=== PATIENT | male | born 1970 | race Caucasian/White ===

== ENCOUNTER 2016-12-05 11:11 | Emergency (ER) | payer OTHER ==
--- NOTE | 2016-12-05 12:00 | UCPHY ---
H & P Time Seen by Provider: 12/05/16 11:27 Patient Type: New HPI/ROS: CHIEF COMPLAINT: Calf pain History by patient HISTORY OF PRESENT ILLNESS: 46-year-old man with a remote history of an unprovoked DVT any positive family history of blood clotting in several relatives presents complaining of pain in his left calf which has been constant and increasing over 2 weeks. Pain began after skiing 1 day but has not gone away and it feels similar to his prior blood clot. He denies any leg swelling. He has been able to walk on it. He has not taken anything for the pain but he is concerned that he might have a blood clot there because of his prior history. He is not currently on any blood thinning medication. He thinks he was on Coumadin in the past. Patient denies any chest pain or trouble breathing. REVIEW OF SYSTEMS: As in HPI, and all other systems reviewed and are negative Smoking Status: Never smoked Physical Exam: General Appearance: Alert and no distress. Eyes: Pupils equal and round no injection. Musculoskeletal: Neck is supple and nontender. Extremities: Left lower leg with mild mid calf tenderness but no swelling. No posterior knee tenderness. DP pulses 2+ and equal bilaterally. Distal sensation is intact. Positive Homans sign Skin: No rashes or lesions. Constitutional: Initial Vital Signs Temperature (C) 36.7 C 12/05/16 11:23 Heart Rate 74 12/05/16 11:23 Respiratory Rate 18 12/05/16 11:23 Blood Pressure 141/76 H 12/05/16 11:23 O2 Sat (%) 94 12/05/16 11:23 O2 Delivery Mode Room Air Allergies/Adverse Reactions: No Known Allergies Allergy (Unverified 06/10/13 16:15) Home Medications: Medication Instructions Recorded Sertraline HCl 06/10/13 Medical Decision Making ED Course/Re-evaluation: Patient with prior history of DVT in family history of DVT suggesting underlying clotting disorder presents with pain in his calf similar to prior episodes. A D-dimer is positive. Patient is sent to [facility] to have ultrasound to evaluate for DVT. I discussed the case with Dr. Freedman at [facility]. - Data Points Laboratory Results: 12/05/16 11:35 D-Dimer 1.52 ug/mLFEU H ug/mLFEU (0.00-0.50) Departure - Departure Disposition: [facility] ER Clinical Impression: Leg pain, left Condition: Good Additional Instructions: You were seen by Dr. Cara Roblero today. Please go straight to [facility] ER to have an ultrasound. They should be expecting you. Referrals: NONE *PRIMARY CARE P,. [Primary Care Provider] - As per Instructions - PQRS PQRS Measurement: NA
[2016-12-05 12:24] VITALS: RESP 16
--- NOTE | 2016-12-05 15:28 | EDPHY ---
H & P Time Seen by Provider: 12/05/16 11:27 HPI/ROS: CHIEF COMPLAINT: Possible thrombus in the left calf HISTORY OF PRESENT ILLNESS: 46-year-old male evaluated the [facility] with a prior history of DVTs now presents with left calf swelling. He was referred to [facility] to undergo ultrasound evaluation. Patient was noted to have an elevated D-dimer at the [facility]. There was no ultrasound available at the [facility] today. Patient was otherwise well. No fever, chills, chest pain, shortness of breath, palpitations, vomiting, diarrhea, urinary complaints, headache, lightheadedness. REVIEW OF SYSTEMS: Aside from elements discussed in the HPI, a comprehensive 10-point review of systems was reviewed and is negative. PAST MEDICAL HISTORY: DVT, unprovoked, 13 years ago. SOCIAL HISTORY: Nonsmoker. VITAL SIGNS: see nurse's notes. GENERAL: Well-developed, well-nourished, in no acute distress. HEENT: Benign exam. Neck: supple, FROM. LUNGS: Clear to auscultation bilaterally, no wheezes, rhonchi or rales. CARDIAC: Regular rate and rhythm, no rubs, murmurs or gallops. ABDOMEN: Benign. BACK: No CVA tenderness. No vertebral tenderness. EXTREMITIES: Left lower extremity: No swelling or erythema is appreciated on visual inspection. The calf is somewhat tender to palpation. No popliteal tenderness. Distal pulses are 2+ dorsalis pedis and posterior tibial. Positive Homans sign. NEURO: Alert and oriented, grossly nonfocal. SKIN: Warm and dry, no rash. Smoking Status: Never smoked Constitutional: Initial Vital Signs Temperature (C) 36.7 C 12/05/16 11:23 Heart Rate 74 12/05/16 11:23 Respiratory Rate 18 12/05/16 11:23 Blood Pressure 141/76 H 12/05/16 11:23 O2 Sat (%) 94 12/05/16 11:23 O2 Delivery Mode Room Air Allergies/Adverse Reactions: No Known Allergies Allergy (Verified 12/05/16 12:41) Home Medications: Medication Instructions Recorded Sertraline HCl 06/10/13 Rivaroxaban [Xarelto 15mg (*)] 15 mg PO DAILY #20 tab 12/05/16 MDM/Departure - MDM Imaging Results: Imaging Impressions Extremity Venous Study 12/05/16 13:12 Impression: Deep vein thrombosis in the left calf with no extension into the popliteal vein or more cephalad deep veins. Results called and discussed with Beth Freedman MD on 12/05/2016 at 14:50 ED Course/Re-evaluation: 46-year-old male with history of a past DVT now presenting with clot in his left calf. Patient will be placed on Xarelto 15 mg by mouth 2 times a day. He has been seen at the prior [facility]. Attempt was made to contact on-call physician for [facility] on multiple occasions. The time of this dictation, 5:00 p.m., they have not yet returned my call. Patient understands that he needs to begin taking the Xarelto and follow up with the primary care physician on Wednesday or Wednesday of next week for further evaluation as well as for further management of his xarelto. Differential Diagnosis: Differential diagnosis for the patient's primary complaint of leg swelling was considered including but not limited to cellulitis, hypoalbuminemia, congestive heart failure, cor pulmonale, chronic venous stasis and DVT. - Depart Disposition: [facility] ER Clinical Impression: Leg pain, left Calf DVT (deep venous thrombosis) Qualifiers: Laterality: left Chronicity: acute Qualified Code(s): I82.4Z2 - Acute embolism and thrombosis of unspecified deep veins of left distal lower extremity Condition: Good Instructions: Deep Venous Thrombosis (ED) Additional Instructions: Your ultrasound demonstrates clot in the calf of the left leg. Please begin taking Xarelto as directed. 15 mg 2 times a day for the next 20 days. You need to be seen by a primary care physician early next week. Prescriptions: Rivaroxaban [Xarelto 15mg (*)] 15 mg PO DAILY #20 tab Referrals: NONE *PRIMARY CARE P,. [Primary Care Provider] - As per Instructions Baltazar Bingham DO [Doctor of Osteopathy] - As per Instructions (Please follow up at [facility] ([facility] next week.)
[2016-12-05 15:43] VITALS: BP 120/88; PULSE 65; TEMP 98.4; O2SAT 97
== END 2016-12-05 15:41 | disposition still patient (30) ==
LOC: CED 11:11
DX: I82.4Z2 Acute embolism and thrombosis of unspecified deep veins of left distal lower extremity (principal)
CPT/HCPCS: 85378-PO; G0463-PO

== ENCOUNTER 2017-09-24 09:52 | Observation (INO) | payer OTHER ==
--- NOTE | 2017-09-24 10:22 | EDPHY ---
General - History Smoking Status: Never smoked Narrative: CHIEF COMPLAINT: Left leg pain HISTORY OF PRESENT ILLNESS: Patient complains of pain in the left leg over the past 3 weeks. It was at 1st isolated to the left calf with point tenderness. It has steadily increased over the past 3 weeks. It is similar to previous DVTs that he has had in the same leg. He has had a total of 2, most recently treated last summer. He stopped his Xarelto last March at completion of therapy. He was doing well until recently. He did fly to [place] in early August. He has no chest pain but he does note some mild shortness of breath with exercise over the past 4 weeks. No pain in the right lower extremity or either arm. He denies any known clotting disorders, but he has not completed the workup previous DVTs. No other associated complaints or modifying factors. REVIEW OF SYSTEMS: Ten systems reviewed and are negative unless otherwise noted in the HPI PCP: [facility] SPECIALISTS: None PAST MEDICAL HISTORY: Recurrent DVTs PAST SURGICAL HISTORY: None SOCIAL HISTORY: Nonsmoker. No drug use. Works as an senior net developer architect. Lives here locally FAMILY HISTORY: Noncontributory EXAMINATION General Appearance: Alert, no distress Head: normocephalic, atraumatic Eyes: Pupils equal and round, no conjunctival pallor or injection ENT, Mouth: Mucous membranes moist Neck: Normal inspection, supple, non-tender Respiratory: Lungs are clear to auscultation Cardiovascular: Regular rate and rhythm. No murmur. Right DP pulses 2+. Left DP pulses 1+. Right PT pulses 2+. Left PT pulses 1+. Gastrointestinal: Abdomen is soft and nontender Back: non-tender, no bony abnormalities Neurological: A&O, nonfocal, normal gait Skin: Warm and dry, no rash Extremities: Tenderness of the right leg from the distal thigh down. He does have edema of the left calf and thigh. Pain with passive dorsiflexion of the ankle. No palpable cord. Range of motion is symmetric in the lower extremities. Psychiatric: Mood and affect normal DIFFERENTIAL DIAGNOSES: Including but not limited to DVT, edema, strain, spasm, rhabdo MDM: 10:20 a.m. Patient is reportedly here for extremity pain. I have attempted to evaluate the patient but he is currently getting his ultrasound of the lower extremity performed at this time. I will re-evaluate after Doppler study. 10:44 a.m. Unofficial interpretation is DVT from the distal femoral and distally. 10:50 a.m. Official interpretation from radiologist Dr. Mayfield as been reviewed. 10:55 a.m. Patient has been evaluated. He does have left lower extremity DVT but is neurovascular intact distally. He has mild shortness of breath over the past month, thus I have ordered CT scan of the chest to rule out PE. No chest pain at any time during this. I have ordered hypercoag panel, EKG, laboratory studies. I have also discussed with Dr. Nieves and ordered Xarelto p.o.. 11:20 a.m. I originally had ordered 20 mg of p.o. Xarelto. I corrected this cancel the order unchanged is 250 mg of Xarelto. He did not receive 20 mg dosing. 11:40 a.m. CBC unremarkable. Chemistry unremarkable. PT/PTT unremarkable. Fibrinogen is normal. BNP and troponin are pending. CT scan is currently being obtained. 11:50 a.m. Notified by radiologist Dr. Lyons. Bilateral moderate volume pulmonary emboli noted. Dr. Nieves notified and the hospitalist has been paged for admission. 12:06 p.m. Case discussed with hospitalist Joanna Michael. Patient be admitted to Dr. Blanchard. She requests a medical-surgical bed. He is admitted in stable condition with negative troponin, negative BNP. He is awake alert no acute distress. He does not require supplemental oxygen at this time. Xarelto therapy was already commenced. Hypercoagulability panel is pending. EKG interpretation: Dr. Nieves SUPERVISION: Patient was independently examined, but I discussed the case with my secondary supervising physician Dr. Nieves ([facility]) Medical Decision Making: I evaluated this patient with the physician stylist assistant Jerrell. This patient has a new DVT and he has had multiple others. In addition he has having some shortness of breath. We started him on therapeutic Xarelto at 15 mg twice daily for the 1st 21 days we gave his 1st dose. CT study is pending for his chest. (Yosef Nieves) - Diagnostics Imaging Results: Imaging Impressions Extremity Venous Study 09/24/17 10:00 Impression: Moderate volume of acute deep venous thrombosis involving the distal femoral, popliteal, and peroneal and posterior tibial veins in the calf. Findings discussed with Emergency Department physician, Yosef Nieves MD on 2017 at 10:55 a.m. Chest/Thorax CTA 09/24/17 10:58 Impression: 1. Multiple acute pulmonary thromboemboli throughout both lungs, moderate volume. 2. No pulmonary infarcts, pleural effusion or pneumothorax. Findings and recommendations discussed with Emergency Department physician, Avel Siegel PA-C, at 1145 hours on September 24, 2017. Final report concurs with initial preliminary interpretation. A test result has been communicated to a licensed care provider and documented in the [facility] Result system on 09/24/2017 12:02, Message ID [id number]. - Objective Vital Signs: Initial Vital Signs Temperature (C) 98.1 F 09/24/17 10:01 Heart Rate 75 09/24/17 10:01 Respiratory Rate 18 09/24/17 10:01 Blood Pressure 127/77 H 09/24/17 10:01 O2 Sat (%) 96 09/24/17 10:01 O2 Delivery Mode Room Air Allergies/Adverse Reactions: No Known Allergies Allergy (Verified 12/05/16 12:41) Home Medications: Medication Instructions Recorded Sertraline HCl [Zoloft 100mg (*)] 100 mg PO HS 06/10/13 Laboratory Results: Laboratory Results 09/24/17 11:09 09/24/17 11:09 09/24/17 09/24/17 09/24/17 11:45 11:09 11:09 WBC RBC Hgb POC Hgb Hct POC Hct MCV MCH MCHC RDW Plt Count PT 13.5 SEC SEC (12.0-15.0) INR 1.01 (0.83-1.16) APTT 26.6 SEC SEC (23.0-38.0) Fibrinogen 430 mg/dL mg/dL (214-456) Protein C Activity Pending Protein S Activity Pending Antithrombin III Activ Pending Factor V Leiden Mutat Pending Factor V Leiden Interp Pending Fact V Leiden Review By Pending POC Sodium Sodium 144 mEq/L mEq/L (135-145) POC Potassium Potassium 4.7 mEq/L mEq/L (3.5-5.2) POC Chloride Chloride 105 mEq/L mEq/L (97-110) Carbon Dioxide 30 mEq/l mEq/l (22-31) Anion Gap 9 mEq/L mEq/L (8-16) POC BUN BUN 16 mg/dL mg/dL (7-23) Creatinine 0.9 mg/dL mg/dL (0.7-1.3) POC Creatinine Estimated GFR > 60 Glucose 97 mg/dL mg/dL (70-100) POC Glucose Calcium 9.7 mg/dL mg/dL (8.5-10.4) Troponin I NT-Pro-B Natriuret Pep 45 pg/mL pg/mL (0-125) Anti-Cardiolipin IgG Ab Pending Anti-Cardiolipin IgM Ab Pending 09/24/17 09/24/17 09/24/17 11:09 11:05 09:52 WBC 6.50 10^3/uL 10^3/uL (3.80-9.50) RBC 4.80 10^6/uL 10^6/uL (4.40-6.38) Hgb 15.4 g/dL g/dL (13.7-17.5) POC Hgb 15.3 gm/dL gm/dL (13.7-17.5) Hct 44.0 % % (40.0-51.0) POC Hct 45 % % (40-51) MCV 91.7 fL fL (81.5-99.8) MCH 32.1 pg pg (27.9-34.1) MCHC 35.0 g/dL g/dL (32.4-36.7) RDW 12.3 % % (11.5-15.2) Plt Count 173 10^3/uL 10^3/uL (150-400) PT INR APTT Fibrinogen Protein C Activity Protein S Activity Antithrombin III Activ Factor V Leiden Mutat Factor V Leiden Interp Fact V Leiden Review By POC Sodium 143 mEq/L mEq/L (135-145) Sodium POC Potassium 4.5 mEq/L mEq/L (3.3-5.0) Potassium POC Chloride 103 mEq/L mEq/L (97-110) Chloride Carbon Dioxide Anion Gap POC BUN 16 mg/dL mg/dL (7-23) BUN Creatinine POC Creatinine 1.0 mg/dL mg/dL (0.7-1.3) Estimated GFR Glucose POC Glucose 96 mg/dL mg/dL (70-100) Calcium Troponin I < 0.012 ng/mL ng/mL (0.000-0.034) NT-Pro-B Natriuret Pep Anti-Cardiolipin IgG Ab Anti-Cardiolipin IgM Ab Medications Given: Discontinued Medications Rivaroxaban (Xarelto) 20 mg PO EDNOW ONE Stop: 09/24/17 11:04 Last Admin: 09/24/17 11:32 Dose: Not Given Rivaroxaban (Xarelto) 15 mg PO EDNOW ONE Stop: 09/24/17 11:32 Last Admin: 09/24/17 11:45 Dose: 15 mg Point of Care Test Results: 09/24/17 11:05 POC Sodium 143 POC Potassium 4.5 POC Chloride 103 POC BUN 16 POC Creatinine 1.0 POC Glucose 96 Departure - Departure Disposition: [facility] Acute Clinical Impression: Bilateral pulmonary embolism Left leg DVT Qualifiers: Affected thrombotic vein of extremity: unspecified vein of extremity Chronicity : acute Qualified Code(s): I82.402 - Acute embolism and thrombosis of unspecified deep veins of left lower extremity Condition: Good
[2017-09-24] MEDS ORDERED: RIVAROXABAN 15 MG TAB PO ONE ×2 (11:03→11:31)
[2017-09-24] MEDS ORDERED: IOPAMIDOL (ISOVUE 370) 100 ML BTL IV ONE (11:23)
--- NOTE | 2017-09-24 11:23 | CPEKG ---
Heart Rate: 71 RR Interval: 845 P-R Interval: 168 QRSD Interval: 78 QT Interval: 376 QTC Interval: 409 P Ramah: 74 QRS Ramah: 65 T Wave Ramah: 27 EKG Severity - ABNORMAL ECG - EKG Impression: SINUS RHYTHM EKG Impression: ST ELEVATION SUGGESTS PERICARDITIS Electronically Signed By: Yosef Nieves 24-Sep-2017 14:55:20
[2017-09-24 11:28] LABS: INR 1.01 (0.83-1.16); PROTIME(PATIENT) 13.5 SEC (12.0-15.0)
--- NOTE | 2017-09-24 13:24 | ASMTLACE ---
CORINA Acuity / Level of Answers: Yes Care: Did the patient have an inpatient admission? Comorbidities - select Answers: Other Notes: recurrent DVT's all that apply (coagulopathy) # of Emergency department Answers: 1-2 visits in the last 6 months Score: 5 Date Signed: 09/24/2017 01:23 PM Electronically Signed By:Verito Barriga RN
[2017-09-24] MEDS ORDERED: ACETAMINOPHEN 325 MG TAB PO PRN (14:43)
[2017-09-24] MEDS ORDERED: ONDANSETRON DISINTEGRATING 4 MG TAB PO PRN (14:43)
[2017-09-24] MEDS ORDERED: ONDANSETRON 4 MG/2 ML VIAL IVP PRN (14:43)
--- NOTE | 2017-09-24 15:06 | GHP ---
[f rep st] HISTORY AND PHYSICAL DATE OF ADMISSION: 09/24/2017 CHIEF COMPLAINT: Shortness of breath and leg pain. HISTORY OF PRESENT ILLNESS: This is a 47-year-old male with a history of a DVT who presents with abo ut 1 week worth of left calf pain. It got worse over the last 2 days where he is limping. He also n otes that his exercise tolerance has worsened over the last week or so. He used to be able to run an 8 minute mile, now he is unable to run a mile without stopping. He has no chest pain. He flew to [facility] at the beginning of August. His father and grandfather have both had clots and his father co ntinues to be on anticoagulants. PAST MEDICAL/SURGICAL HISTORY: Left leg DVT. MEDICATIONS: Please see medication reconciliation. ALLERGIES: No known drug allergies. FAMILY HISTORY: DVTs. SOCIAL HISTORY: He drinks socially. He does not smoke. REVIEW OF SYSTEMS: A 10-point review of systems is conducted and is negative except per HPI. PHYSICAL EXAM: VITAL SIGNS: Blood pressure 123/74, heart rate 86, respirations 16, saturating at 94 % on room air. Temperature is 37. GENERAL: The patient is a very pleasant man who is resting comfo rtably in no acute distress. HEENT: Shows him to be normocephalic, atraumatic. CARDIOVASCULAR: Sh ows a regular rate and rhythm. No murmurs, rubs, or gallops. PULMONARY: Shows him to be in no resp iratory distress. LUNGS: Are clear to auscultation bilaterally. ABDOMEN: Soft, nontender, nondist ended. SKIN: Shows no rash. GENITOURINARY: Exam shows no Yost. NEUROLOGIC: Exam shows him to b e alert and oriented x3. He is moving all extremities. PSYCHIATRIC: Exam shows normal mood and aff ect. EXTREMITIES: Exam shows left lower extremity to have a full calf. It is slightly tender to pa lpation. LABS: CBC is normal. Basic metabolic panel is normal. DATA: 1. I discussed with Dr. Nieves. 2. CT angiogram of his lungs shows multiple acute pulmonary thromboemboli throughout both lungs with moderate volume. 3. Lower extremity ultrasound shows DVT in the left lower extremity. IMPRESSION AND PLAN: Pulmonary embolus/deep venous thrombosis: Hemodynamically stable. He was star shannon on Xarelto in the ED. Discussed all anticoagulant options including risks and benefits, and he w ould like to continue his Xarelto. He has been on this before. 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 Suspect that he will be able to be discharged tomorrow with a prescripti on for Xarelto. /[id number]/MODL
[2017-09-24] MEDS: RIVAROXABAN 15 MG TAB PO SCH (18:45)
[2017-09-24] MEDS ORDERED: SERTRALINE HCL 100 MG TAB PO SCH (21:00)
[2017-09-25 00:53] VITALS: RESP 16
[2017-09-25 07:44] VITALS: BP 117/72; TEMP 98
--- NOTE | 2017-09-25 08:30 | HOSPPROG ---
Hospitalist Progress Note Assessment/Plan: Patient is a 47 y/o male w hx of DVT who presented with left calf pain. He had increase pain over the past 2 days to the point where he was limping. Today is my first encounter with the patient, chart reviewed. *PE, DVT CTA shows multiple PE throughout both lungs w moderate volume ultrasound shows DVT in left lower extremity hemodynamically stable Xarelto *Plan: dc home will give him names of general machine operator to f/u with Subjective: Kuldip is feeling fine, shortness of breath is better. Objective: Vital Signs Temp Pulse Resp BP Pulse Ox 36.7 C 68 16 117/72 93 09/25/17 07:41 09/25/17 07:41 09/25/17 07:41 09/25/17 07:41 09/25/17 07:41 PT 13.5 SEC (12.0-15.0) 09/24/17 11:09 INR 1.01 (0.83-1.16) 09/24/17 11:09 - Physical Exam Constitutional: no apparent distress Eyes: PERRL Ears, Nose, Mouth, Throat: hearing normal Cardiovascular: regular rate and rhythym Respiratory: no respiratory distress Gastrointestinal: normoactive bowel sounds Skin: warm, other (left calf with swelling) Musculoskeletal: full muscle strength Neurologic: AAOx3 Psychiatric: interacting appropriately ICD10 Worksheet Patient Problems: Problems Problem Status Onset Bilateral pulmonary embolism Acute Left leg DVT Acute
[2017-09-25] MEDS: RIVAROXABAN 15 MG TAB PO SCH (08:56)
--- NOTE | 2017-09-25 09:34 | GDS ---
[f rep st] DISCHARGE SUMMARY DISCHARGE DIAGNOSIS: Deep venous thrombosis, bilateral pulmonary emboli. HISTORY: Briefly the patient is a 47-year-old male with a history of DVT. He presented with 1 week of calf pain. He also noted that his exercise tolerance has worsened over the last week or so, and w as unable to run without stopping. He had a CT angiogram of his lungs, which showed acute pulmonary thromboemboli throughout both lungs with moderate volume. He has a lower extremity DVT that was note d per ultrasound. Today, he will be discharged home on Xarelto. He is familiar with this medication . I have recommended that he follow up with a legal coordinator in further evaluation. DISCHARGE CONDITION: Stable. Blood pressure is 117/72, O2 saturations on room air 93%, respiratory r ate is 16, pulse is 68, temperature is 36.7. MEDICATIONS AT DISCHARGE: Please see the EMR. DISCHARGE INSTRUCTIONS: 1. Take Xarelto 15 mg twice daily for the next 20 days and then to start Xarelto 20 mg daily. Both these prescriptions have been sent to his pharmacy. 2. Follow up with Dr. Webster. 3. Recommending he take it easy for the next 2 weeks walking. Recommended he does not work out at e gym and then in 2 to 4 weeks to increase gentle hiking. 4. I recommend that he follows up with a legal coordinator. I have given him doctors' names. Also, he h as multiple labs pending. His primary care provider needs to follow up with these. /[id number]/MODL
[2017-09-25 09:45] VITALS: PULSE 73; O2SAT 95
--- NOTE | 2017-09-25 10:17 | ASDISCHSUM ---
Discharge Information Plan Status:Home with No Needs Medically Cleared to Leave: Discharge Date:09/25/2017 10:01 AM CM D/C Disposition:Home, Routine, Self-Care ADT D/C Disposition:Home, Routine, Self-Care Projected Discharge Date:09/25/2017 10:01 AM Transportation at D/C: Discharge Delay Reason: Follow-Up Date:09/25/2017 10:01 AM Discharge Slot: Final Diagnosis: Placement Information Patient Contact Information Contact Name:ELENA Relationship: Address:[address] [place] [address] City:[facility] Phone: [facility]/Zip Code:[place] [address] Email: Financial Information Financial Class:[employer] Primary Plan Desc:NORMAN Lolita O [facility] Primary Plan Number:[id number] Secondary Plan Desc: Secondary Plan Number: Assessment Information LACE LACE Acuity / Level of Answers: Yes Care: Did the patient have an inpatient admission? Comorbidities - select Answers: Other Notes: recurrent DVT's all that apply (coagulopathy) # of Emergency department Answers: 1-2 visits in the last 6 months Score: 5 Date Signed: 09/24/2017 01:23 PM Electronically Signed By:Verito Barriga RN [facility] CM Progress Note CM Note CM Note Notes: Pt did not require pre-auth for xarelto his pharmacy confirmed he can access medication w co-pay. Date Signed: 09/25/2017 10:16 AM Electronically Signed By:ZAC Patterson Intervention Information
== END 2017-09-25 10:01 | disposition home or self-care (01) ==
LOC: INTOOBSV 12:06 → F3N 14:10
PROVIDERS: ADMIT Student in an Organized Health Care Education/Training Program; ATTEND Student in an Organized Health Care Education/Training Program
DX: I82.412 Acute embolism and thrombosis of left femoral vein (principal); I82.432 Acute embolism and thrombosis of left popliteal vein; I82.442 Acute embolism and thrombosis of left tibial vein; I26.99 Other pulmonary embolism without acute cor pulmonale; Z86.718 Personal history of other venous thrombosis and embolism
CPT/HCPCS: 71275; 93005; 93971; 99285; G0378; 82947-QW; 85300-90; 85303-90; 85306-90; 86147-90; Q9967